=== PATIENT | female | born 1980 | race Caucasian/White ===

== ENCOUNTER 2019-03-22 19:25 | Emergency (ER) | payer BC ==
[2019-03-22 20:44] VITALS: BP 115/70
--- NOTE | 2019-03-22 21:49 | UC ---
Lower Extremity/Ankle HPI - HPI Summary HPI Summary: 38-year-old woman comes in with a chief complaint of left calf pain. Patient woke up with pain in her calf this morning. No specific trauma. She noticed a area of bruising on her calf. The area is tender to palpation. No chest pain. Patient has had upper respiratory tract infection symptoms for several days so she does have some chest congestion. Patient has no history of deep venous thrombosis or pulmonary embolus. She is not a smoker. No recent travel. She is not on any estrogen. There is a family history of blood clots on her grandmother's side. - History of Current Complaint Chief Complaint: UCGeneralIllness Stated Complaint: LT LEG CONCERN Time Seen by Provider: 03/22/19 20:41 Hx Last Menstrual Period: 03/18/19 Pain Intensity: 5 - Allergies/Home Medications Allergies/Adverse Reactions: Allergies Allergy/AdvReac Type Severity Reaction Status Date / Time No Known Allergies Allergy Verified 03/22/19 20:37 Home Medications: Home Medications NK [No Home Medications Reported] 03/22/19 [History Confirmed 03/22/19] PMH/Surg Hx/FS Hx/Imm Hx Previously Healthy: Yes - Surgical History Surgical History: Yes Surgery Procedure, Year, and Place: throat dilation due inflammation. C- section x1 - Family History Known Family History: Positive: Non-Contributory - Social History Alcohol Use: None Substance Use Type: None Smoking Status (MU): Never Smoked Tobacco - Immunization History Most Recent Tetanus Shot: Unsure Review of Systems All Other Systems Reviewed And Are Negative: Yes Constitutional: Positive: Negative Skin: Positive: Bruising - SEE HPI Eyes: Positive: Negative ENT: Positive: Negative Respiratory: Positive: Negative Cardiovascular: Positive: Negative Gastrointestinal: Positive: Negative Motor: Positive: Negative Neurovascular: Positive: Negative Musculoskeletal: Positive: Other: - SEE HPI Neurological: Positive: Negative Psychological: Positive: Negative Is Patient Immunocompromised?: No Physical Exam Triage Information Reviewed: Yes Appearance: Well-Appearing, No Pain Distress, Well-Nourished Vital Signs: Initial Vital Signs Temp 98.1 F 03/22/19 20:37 Pulse 83 03/22/19 20:37 Resp 16 03/22/19 20:37 BP 115/70 03/22/19 20:37 Pulse Ox 100 03/22/19 20:37 Vital Signs Reviewed: Yes Eye Exam: Normal Eyes: Positive: Conjunctiva Clear Neck: Positive: Supple Respiratory: Positive: Lungs clear, Normal breath sounds, No respiratory distress Cardiovascular: Positive: RRR Musculoskeletal: Positive: Strength Intact, ROM Intact, Other: - Left lower calf has a 3 cm diameter area of ecchymosis. The area is tender to palpation. The proximal calf is mildly tender to palpation is not swollen. Neurological: Positive: Alert Psychological: Positive: Age Appropriate Behavior Skin: Positive: Other - 3 cm area of ecchymosis on the left lower calf. Is tender to palpation.normal capillary refill otherwise. Normal sensation. Lower Extremity Course/Dx - Course Course Of Treatment: On examination this does not appear to be a deep venous thrombosis appears to be superficial ecchymosis. There is minimal tenderness to palpation in the rest of the calf. There is no swelling. At this time the patient is low risk for deep venous thrombosis. We discussed that the emergency department can do ultrasound to rule out a DVT. Now as it is evening here we do not have ultrasound available but will be available tomorrow morning. I discussed all this with the patient. I encouraged her to go the emergency department if she had any worsening of her condition or further concerns. - Differential Dx/Diagnosis Provider Diagnosis: Pain of left calf, Superficial bruising of lower leg Discharge ED - Sign-Out/Discharge Documenting (check all that apply): Patient Departure All imaging exams completed and their final reports reviewed: No Studies - Discharge Plan Condition: Stable Disposition: HOME Patient Education Materials: Contusion in Adults (ED), Leg Pain (ED) Referrals: Ashley Davidson [Primary Care Provider] - Additional Instructions: FOLLOW UP WITH YOUR DOCTOR IF NOT COMPLETELY IMPROVED. ULTRASOUND IS USED TO EVALUATE FOR A BLOOD CLOT IN THE LEG. THE EMERGENCY DEPARTMENT HAS ULTRASOUND CAPABILITIES. OUR CLINIC HAS ULTRASOUND THURSDAY THROUGH THURSDAY IN THE MORNING. GET RECHECKED SOONER IF WORSE; PAIN, SWELLING, SHORTNESS OF BREATH, CHEST PAIN OR ANY QUESTIONS OR CONCERNS. - Billing Disposition and Condition Condition: STABLE Disposition: Home
== END 2019-03-22 22:03 | disposition home or self-care (01) ==
LOC: UCCORT 19:25
DX: M79.662 Pain in left lower leg (principal); S80.12XA Contusion of left lower leg, initial encounter; X58.XXXA Exposure to other specified factors, initial encounter; Y92.9 Unspecified place or not applicable
CPT/HCPCS: 99201; G0463

== ENCOUNTER 2019-03-23 08:33 | Emergency (ER) | payer BC ==
--- OUTSIDE RECORDS SUMMARY | 2019-03-23 08:38 | XMS REPORT | Continuity of Care Document ---
:1980 External Reference #:[id number] Author Name Gregory Aj M.D. (transmitted by agent of provider Maisha Torres) Address [address] [place] [address] Care Team Providers Name Role Phone Ashley Sheppard NP - Nurse Care Team Information Resident Care Coordinator [phone] Practitioner Problems Description No Information Available Social History Type Date Description Comments Sex Unknown Tobacco Use Start: Unknown Never Smoked Cigarettes ETOH Use Rare Use Of Alcohol Recreational Drug Use Never Used Drugs Allergies, Adverse Reactions, Alerts Description No Known Drug Allergies Medications Active Medications SIG Qnty Indications Ordering Provider Date Amoxicillin twice a day 1 14tabs Gregory Aj, 02/04/2019 875mg week M.D. Tablets Epipen 2-Prem use as directed Unknown 0.3mg/0.3ML Solution Auto-Inject Omeprazole 1 by mouth every Unknown 40mg day Capsules DR Multi Vitamin Unknown Tablets Vitamin D3 weekly Unknown 1000Unit Capsules [place] 3 Unknown 1000mg Capsules Immunizations Description No Information Available Vital Signs Date Vital Result Comment 02/04/2019 10:45am Weight 173.00 lb Height 66 inches 5'6" BMI (Body Mass Index) 27.9 kg/m2 BP Systolic 93 mmHg BP Diastolic 61 mmHg Heart Rate 62 /min O2 % BldC Oximetry 98 % Body Temperature 98.1 F Pain Level 0 01/06/2019 11:41am Weight 180.00 lb Height 66 inches 5'6" BMI (Body Mass Index) 29.0 kg/m2 BP Systolic 103 mmHg BP Diastolic 70 mmHg Heart Rate 71 /min O2 % BldC Oximetry 96 % Body Temperature 97.3 F Pain Level 0 Results Description No Information Available Procedures Date Code Description Status 12/16/2018 16576 Dil. Of Esoph. By Sound Or Bougie Completed 12/16/2018 60626 Esophagoscopy/Diagnostic Completed 12/16/2018 17468 Anesthesia, Chest Surgery Closed Completed 12/15/2018 56055 IV Infusion, Hydration, 31 Minutes To 1 Hour Completed 12/15/2018 44324 Fiberoptic Laryngoscopy,Diag. Completed Medical Devices Description No Information Available Encounters Type Date Location Provider Dx Diagnosis Office Visit 01/06/2019 Main Office Gregory Aj M.D. K21.9 Gastro- esophageal 11:45a reflux disease without esophagitis R13.10 Dysphagia, unspecified Office Visit 12/15/2018 10:00a Main Office Gregory jA R13.10 Steve, MLeanna unspecified K21.9 Gastro-esophageal reflux disease without esophagitis Assessments Date Code Description Provider 01/06/2019 K21.9 Gastro-esophageal reflux disease without Gregory Aj M.D. esophagitis 01/06/2019 R13.10 Dysphagia, unspecified Gregory Aj M.D. 12/16/2018 R13.10 Dysphagia, unspecified German Bills MD 12/16/2018 R13.10 Dysphagia, unspecified Gregory Aj M.D. 12/15/2018 R13.10 Dysphagia, unspecified Gregory Aj M.D. 12/15/2018 K21.9 Gastro-esophageal reflux disease without Gregory Aj M.D. esophagitis Plan of Treatment No Information Available Functional Status Description No Information Available Mental Status Description No Information Available Referrals Refer to Reason for Referral Status Appt Date Gregory Aj M.D. eff: 06/29/18, no deductible, individual oop: Created /0000 2,000- 92.58 applied 50.00 copay no auth required [address] [place] [id number] [phone]
[2019-03-23 08:44] VITALS: BP 112/85
--- NOTE | 2019-03-23 09:27 | ED ---
Lower Extremity - HPI Summary HPI Summary: 38 yr old female with the complaint of left calf pain, and bruise. Onset over a day ago. She woke up with it yesterday. She returned today for US since non yesterday. SHe has a sore throat and is wondering if it is strep. Onset this morning. No other complaints. - History of Current Complaint Chief Complaint: UCGeneralIllness Stated Complaint: ST/LEG COMP Time Seen by Provider: 03/23/19 08:55 Hx Last Menstrual Period: 03/22 Pain Intensity: 2 - Allergies/Home Medications Allergies/Adverse Reactions: Allergies Allergy/AdvReac Type Severity Reaction Status Date / Time No Known Allergies Allergy Verified 03/22/19 20:37 PMH/Surg Hx/FS Hx/Imm Hx - Surgical History Surgery Procedure, Year, and Place: throat dilation due inflammation. C- section x1 Infectious Disease History: No Infectious Disease History: Denies: Traveled Outside the [place] in Last 30 Days - Family History Known Family History: Positive: Non-Contributory - Social History Occupation: Employed Full-time Alcohol Use: None Substance Use Type: Reports: None Smoking Status (MU): Never Smoked Tobacco Review of Systems Constitutional: Negative Positive: Sore Throat Positive: Other - ankle pain All Other Systems Reviewed And Are Negative: Yes Physical Exam Triage Information Reviewed: Yes Vital Signs On Initial Exam: Initial Vitals Temp Pulse Resp BP Pulse Ox 97.3 F 83 16 112/85 100 03/23/19 08:40 03/23/19 08:40 03/23/19 08:40 03/23/19 08:40 03/23/19 08:40 Vital Signs Reviewed: Yes Appearance: Positive: Well-Appearing, No Pain Distress Skin: Positive: Warm, Skin Color Reflects Adequate Perfusion Head/Face: Positive: Normal Head/Face Inspection Eyes: Positive: EOMI, VARSHA ENT: Positive: Pharyngeal erythema Neck: Positive: Nontender Respiratory/Lung Sounds: Positive: Clear to Auscultation, Breath Sounds Present Cardiovascular: Positive: RRR, Pulses are Symmetrical in both Upper and Lower Extremities Abdomen Description: Negative: Distended Musculoskeletal: Positive: Strength/ROM Intact, Other - left calf with small bruise posteriorly. No tenderness. No leg or thigh swelling or tenderness. Neurological: Positive: Sensory/Motor Intact, Alert, Oriented to Person Place, Time, CN Intact II-III, Speech Normal Psychiatric: Positive: Normal Diagnostics - Vital Signs Vital Signs Temp Pulse Resp BP Pulse Ox 03/23/19 08:40 97.3 F 83 16 112/85 100 - Laboratory Lab Results: Lab Results 03/23/19 Range/Units 08:47 Group A Strep Rapid Negative (Negative) Lab Statement: Any lab studies that have been ordered have been reviewed, and results considered in the medical decision making process. - Ultrasound venous doppler left Ultrasound Interpretation Completed By: Radiologist - NAD Lower Extremity Course/Dx - Course Course Of Treatment: 38 yr old with left calf pain. Rapid strep neg. NEG US LEG - Diagnoses Provider Diagnoses: Pain of left calf, Pharyngitis Discharge ED - Sign-Out/Discharge Documenting (check all that apply): Patient Departure All imaging exams completed and their final reports reviewed: Yes - Discharge Plan Condition: Good Disposition: HOME Patient Education Materials: Pharyngitis (ED), Contusion in Adults (ED) Referrals: Ashley Davidson [Primary Care Provider] - - Billing Disposition and Condition Condition: GOOD Disposition: Home
== END 2019-03-23 10:00 | disposition home or self-care (01) ==
LOC: UCCORT 08:33
DX: M79.662 Pain in left lower leg (principal); J02.9 Acute pharyngitis, unspecified
CPT/HCPCS: 87651; 99211; G0463